=== PATIENT | female | born 2005 | race Two or more races ===

== ENCOUNTER 2025-06-19 05:35 | Day surgery (SDC) | payer MEDICAID, SELFPAY ==
[2025-06-16 10:33] VITALS: BMI 34.8
[2025-06-16 11:04] LABS: Collection Type, Urine Clean Catch
[2025-06-16 12:04] LABS: Basophils # (Auto) 0.1 Thou/mm3 (0.0-0.2); Basophils % (Auto) 1 % (0-2.5); Eosinophils # (Auto) 0.2 Thou/mm3 (0.0-0.5); Eosinophils % (Auto) 2 % (0-10); Hematocrit 36.7 % (36.0-46.0); Hemoglobin 11.6 g/dL (12.0-16.0); Immature Granulocytes Auto 0.02 Thou/mm3 (0.00-0.00); Lymphocytes # (Auto) 2.0 Thou/mm3 (1.0-4.8); Lymphocytes % (Auto) 20 % (10-50); Mean Corpuscular HGB Conc 31.6 g/dl (31.0-37.0); Mean Corpuscular Hemoglobin 27.6 pg (25.0-35.0); Mean Corpuscular Volume 87 fL (80-100); Monocytes # (Auto) 0.6 Thou/mm3 (0.0-0.8); Monocytes % (Auto) 6 % (0-12); Neutrophils # (Auto) 7.1 Thou/mm3 (1.8-7.7); Neutrophils % (Auto) 72 % (37-80); Nucleated Red Blood Cell # 0.00 Thou/mm3 (0.00-0.00); Nucleated Red Blood Cell % 0 /100 WBC (0); Platelet Count 423 Thou/mm3 (140-440); RDW Standard Deviation 43.4 fL (36.4-46.3); Red Blood Count 4.20 Miln/mm3 (4.00-5.20); White Blood Count 9.8 Thou/mm3 (4.5-11.0)
[2025-06-16 12:06] LABS: HCG Qualitative,Urine Negative
[2025-06-16 12:08] LABS: Bilirubin,Urine Negative (Negative); Blood,Urine Negative (Negative); Clarity,Urine Clear (Clear/Hazy); Color,Urine Lt-Yellow (Lt Yel-Yel); Glucose, Urine Negative (Negative); Ketones,Urine Negative (Negative); Leukocyte Esterase,Urine Negative (Negative); Nitrite,Urine Negative (Negative); PH,Urine 5.5 (5.0-7.0); Protein,Urine Negative (Neg - Trace); RBC,Urine 3 /hpf (0-3); Specific Gravity,Urine 1.027 (1.001-1.035); Squamous Epithelial Cell,Urine 11 /hpf (0-5); Urobilinogen,Urine Negative mg/dL (0.0-1.0); WBC,Urine 5 /hpf (0-5)
[2025-06-16 12:08] LABS: Alanine Aminotransferase 17 U/L (10-49); Albumin, Serum 4.9 gm/dL (3.5-5.0); Albumin/Globulin Ratio 2.0 (1.2-2.2); Alkaline Phosphatase 64 U/L (46-116); Anion Gap 10 (7-16); Aspartate Amino Transferase 18 U/L (0-34); BUN/Creatinine Ratio 15 Ratio (12-20); Bilirubin,Total 0.4 mg/dL (0.3-1.2); Blood Urea Nitrogen 9 mg/dL (9-23); Calcium 9.3 mg/dL (8.3-10.6); Calcium (Corrected) 9.3 mg/dL (8.5-10.1); Carbon Dioxide 27.2 mMol/L (20.0-31.0); Chloride 107 mMol/L (98-107); Creatinine (Component) 0.6 mg/dL (0.6-1.3); Estimated Creatinine Clearance 146.8 mL/min (>60); Globulin 2.5 gm/dL (2.3-3.5); Glucose 96 mg/dL (74-106); Osmolality,Calculated 285 (275-295); Potassium 4.1 mMol/L (3.4-5.1); Sodium 144 mMol/L (136-145); Total Protein 7.4 gm/dL (5.7-8.2); eGFR > 60 See Note
[2025-06-16 12:23] LABS: Partial Thromboplastin Time 32.6 Seconds (22.0-36.0)
[2025-06-19] VITALS (7 sets, daily range): BP systolic 105–130; BP diastolic 65–71; PULSE 68–126; RESP 14–20; TEMP 36.2–36.8; O2SAT 95–100; BMI 35.2
--- NOTE | 2025-06-19 08:46 | PD.SUROPNT ---
Date of Procedure 06/19/25 Pre Op Diagnosis Infected epidermoid cyst chest wall Post Op Diagnosis Same. Procedure Excision of an infected epidermoid cyst to chest wall repair with advancement skin flaps. 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 This was quite extensive and was quite deep. It required advancement flaps to cover the defect. Procedure Description The patient was interviewed in the preoperative area risk benefits and alternatives were discussed with the patient and informed consent is obtained. The site is marked. Patient is taken to the operating room and then positioned in the supine position IV antibiotics Ancef 2 g was given and patient was given general anesthesia by the punchboard filling machine operator. The chest wall breast regions were prepped and draped in usual manner. Lidocaine 1% with epinephrine is used as an adjunct. Curvilinear elliptical vertical incision is made around the mass and it deepened through the skin subtenons tissue and fascia. The cyst is excised in its entirety. It is a large cyst with large amount of scar tissue. The excision required advancement skin flap on both the sides and superiorly and inferiorly the flaps were advanced to about 5 cm in all 4 directions. The hemostasis is achieved. The operative field is thoroughly irrigated with saline solution and the incision is closed with 2 layers of 2-0 Vicryl and 4-0 Monocryl subcuticular stitches Steri-Strips were applied. Patient Toller the procedure very well. Estimated loss of blood about 5 cc. Complications none Anesthesia GETA Drains None. Implants None. Pathology / specimen Other (Infected epidermoid cyst to chest wall.) Estimated Blood Loss 5 Condition Stable Disposition PACU Surgeon Jose Juan Lopez MD Surgical Staff Operation Date: 06/19/25 07:45 <No data on this case meets the specified criteria> Robb FONG of the punchboard filling machine operator Sam BERNAL epic application coordinator LUIS Burkett Tobacco Drier Operator Kate Velasco surgical aide
--- NOTE | 2025-06-19 09:05 | SUR.PHASEI ---
pt received from OR in recovery bay 1. pt asleep but responds to voice, breathing unlabored on oxymask 8l. v/s stable. pt dressing to chest cdi. report received from Robb FONG and Sam Schuster.
--- NOTE | 2025-06-19 09:34 | SUR.PHASEI ---
pt able to tolerate oral fluids without difficulty swallowing or nausea/vomiting.
--- NOTE | 2025-06-19 09:55 | SUR.PHASEII ---
pt awake and alert, breathing unlabored on room air. v/s stable. pt dressing to chest cdi. pt able to ambulate to wheelchair with steady gait. d/c instructions given with sister Shu in room, all questions answered. pt d/c via wheelchair with all belongings.
== END 2025-06-19 09:55 | disposition home or self-care (01) ==
PROVIDERS: Referring Provider Specialist; Visit Provider Specialist
PROC: (CPT 12032; principal; 2025-06-19 07:30)
DX: L72.0 Epidermal cyst (principal)
CPT/HCPCS: 12032; 14001; 36415; 80053; 81001; 81025; 85025; 85730; A4649; J0131; J0690; J1171; J2250; J2704; J3010; J3490; J1596